=== PATIENT | male | born 1955 | race Caucasian/White ===

== ENCOUNTER 2022-07-27 13:35 | Outpatient (CLI) | payer BC ==
[2022-07-27] MEDS ORDERED: CYSTOGRAFIN 300 ML INFUS..BTL UR ONE (14:11)
== END 2022-07-27 20:30 | disposition home or self-care (01) ==
LOC: SRD 13:35
PROVIDERS: ATTEND Urology Pediatric Urology
DX: C61 Malignant neoplasm of prostate (principal); R97.20 Elevated prostate specific antigen [PSA]
CPT/HCPCS: 74430; 51600; Q9958